=== PATIENT | female | born 1985 | race Caucasian/White ===

== ENCOUNTER 2020-08-18 15:33 | Outpatient (CLI) | payer BC, SELFPAY | END 2020-08-18 15:34 | disposition home or self-care (01) | LOC: ANHLAB 15:36 | PROVIDERS: PCP Family Medicine; Visit Provider Obstetrics & Gynecology | DX: O20.0 Threatened abortion (principal); Z3A.00 Weeks of gestation of pregnancy not specified | CPT/HCPCS: 36415; 84702 ==

== ENCOUNTER 2020-08-20 11:59 | Outpatient (CLI) | payer BC, SELFPAY | END 2020-08-20 12:00 | disposition home or self-care (01) | LOC: ANHLAB 12:01 | PROVIDERS: PCP Family Medicine; Visit Provider Obstetrics & Gynecology | DX: O20.0 Threatened abortion (principal) | CPT/HCPCS: 36415; 84702 ==

== ENCOUNTER 2021-04-07 00:01 | Inpatient (IN) | payer BC, SELFPAY ==
[2021-04-07] VITALS (233 sets, daily range): BP systolic 82–151; BP diastolic 27–98; PULSE 67–149; RESP 16–20; TEMP 36.7–37.7; O2SAT 89–100; BMI 50.1
--- OUTSIDE RECORDS SUMMARY | 2021-04-07 00:06 | XMS_ITS | Encounter Summary ---
:1985 Author Care Team Providers Name Role Phone Karma Scanlon MD Primary Care Provider [phone] Reason for Visit None recorded. Assessment and Plan 1. Chronic hypertension complica ting AND/OR reason for care during ? non-stress test Discussion Note: None recorded.Patient educational handouts: No information available. Plan of Care Reminders Provider Appointments Ob Routine Hillary Flores, 04/14/2021 CNM 9:45AM Lab None ? ? recorded. Referral None ? ? recorded. Procedures None ? ? recorded. Surgeries None ? ? recorded. Imaging Non-stress [place] Test 03/24/2021 Medications Name Start Date ? ? metoprolol succinate ER 50 mg tablet,extended release 24 hr ? TAKE 1 TABLET BY MOUTH DAILY ? Medications Administered None recorded. Vitals None recorded. Results Lab Results None recorded. Allergies Code Code System Name Reaction Severity Onset NKDA ? ? ? Problems Name Status Onset Date Source ? [facility]
--- OUTSIDE RECORDS SUMMARY | 2021-04-07 00:06 | XMS_ITS ---
:1985 Author Care Team Providers Name Role Phone COLE ARBOLEDA MD Primary Care Provider [phone] Allergies Code Code System Name Reaction Severity Status Onset NKDA ? Medications Name Status Start Date Stop Date ? ? amoxicillin 500 mg capsule Completed ? 09/09 TAKE 1 CAPSULE BY MOUTH EVERY 8 HOURS FOR 10 DAYS cephalexin 500 mg capsule Completed ? 2020 TAKE 1 CAPSULE BY MOUTH THREE TIMES DAILY FOR 7 DAYS clomiphene citrate 50 mg tablet Completed ? 09/09/2020 TAKE 3 TABLETS BY MOUTH ON DAYS 5-9 OF CYCLE COVID-19 test specimen collection Completed ? 01/26/2021 TEST DIRECTED TODAY letrozole 2.5 mg tablet Completed ? 10/08/19 21 TAKE 1 TABLET BY MOUTH DAILY ON DAYS 5 TO 9 OF CYCLE losartan Completed ? 03/25/2020 metformin 500 mg tablet Completed ? 10/08/19 21 metoprolol succinate ER 50 mg Active ? No t available tablet,extended release 24 hr nitrofurantoin monohydrate/macrocrystals 100 mg capsule Complete d ? 12/05/2020 TAKE 1 CAPSULE BY MOUTH EVERY 12 HOURS FOR 7 DAYS DIRECTED Active ? Not available progesterone micronized 200 mg capsule Completed ? 12/05/2020 TAKE 1 CAPSULE BY MOUTH EVERY DAY Problems Name Status Onset Date Source ? Active 10/07/2020 ? Maternal Obesity Complicating , Active ? ? Childbirth and the Puerperium, Antepartum Placenta Circumvallata Active ?
--- OUTSIDE RECORDS SUMMARY | 2021-04-07 00:06 | XMS_ITS | Encounter Summary ---
:1985 Author Care Team Providers Name Role Phone Karma Scanlon MD Primary Care Provider [phone] Reason for Visit None recorded. Assessment and [...] ? recorded. Imaging Non-stress [place] Test 03/31/2021 Medications Name Start Date ? ? metoprolol succinate ER 50 mg tablet,extended release 24 hr ? TAKE 1 TABLET BY MOUTH DAILY ? Medications Administered None recorded. Vitals None recorded. Results Lab Results None recorded. Allergies Code Code System Name Reaction Severity Onset NKDA ? ? ? Problems Name Status Onset Date Source ? [facility]
--- OUTSIDE RECORDS SUMMARY | 2021-04-07 00:06 | XMS_ITS | Encounter Summary ---
:1985 Author Care Team Providers Name Role Phone Karma Scanlon MD Primary Care Provider [phone] Reason for Visit OB visit OB [id number] EDC 04/21/2021 LMP 07/15/2020 Assessment and Plan Assessment Note Patient is _36__weeks . Dis cussed plan. 1. Routine care Discussion Note: None recorded.Patient educational handouts: No information available. Plan of Care Reminders Provider Appointments Ob Routine Hillary Flores, 04/14/2021 CNM 9:45AM Lab None ? ? recorded. Referral None ? ? recorded. Procedures None ? ? recorded. Surgeries None ? ? recorded. Imaging None ? ? recorded. Medications Name Start Date ? ? metoprolol succinate ER 50 mg tablet,extended release 24 hr ? TAKE 1 TABLET BY MOUTH DAILY ? Medications Administered None recorded. Vitals Height Weight BMI Blood Pressure 5 ft 5.5 in 292 lbs 47.9 kg/m2 111/67 mm[Hg] Results Lab Results None recorded. Allergies Code Code System Name Reaction Severity Onset NKDA ? ? ? Problems Name Status
--- OUTSIDE RECORDS SUMMARY | 2021-04-07 00:06 | XMS_ITS | Encounter Summary ---
:1985 Author Care Team Providers Name Role Phone Karma Scanlon MD Primary Care Provider [phone] Reason for Visit OB visit OB [id number] EDC 04/21/2021 LMP 07/15/2020 Assessment and Plan Assessment Note Patient is 37___weeks . Dis cussed plan. 1. Routine care [...] BMI Blood Pressure 5 ft 5.5 in 294 lbs 48.2 kg/m2 123/82 mm[Hg] Results Lab Results None recorded. Allergies Code Code System Name Reaction Severity Onset NKDA ? ? ? Problems Name Status
--- OUTSIDE RECORDS SUMMARY | 2021-04-07 00:06 | XMS_ITS | Encounter Summary ---
:1985 Author Care Team Providers Name Role Phone Karma Scanlon MD Primary Care Provider [phone] Reason for Visit None recorded. Assessment and Plan 1. Maternal obesity complicating , childbirth and the puerperium, antepartum ? US, obstetric, follow-up ? US, obstetric, biophysical profile + non-stress test Discussion Note: None recorded.Patient educational handouts: No information available. Plan of Care Reminders Provider Appointments Ob Routine Hillary Flores, 04/14/2021 CN 9:45AM Lab None recorded. ? ? Referral None recorded. ? ? Procedures None recorded. ? ? Surgeries None recorded. ? ? Imaging US, Obstetric, [facility] Follow-up 03/24/2021 ? US, Obstetric, [facility] Biophysical Profile + 03/24/2021 Non-stress Test Medications Name Start Date ? ? metoprolol succinate ER 50 mg tablet,extended release 24 hr ? TAKE 1 TABLET BY MOUTH DAILY ? Medications Administered None recorded. Vitals None recorded. Results Lab Results None recorded. Allergies Code Code System Name
--- OUTSIDE RECORDS SUMMARY | 2021-04-07 00:06 | XMS_ITS | Encounter Summary ---
:1985 Author Care Team Providers Name Role Phone Karma Scanlon MD Primary Care Provider [phone] Reason for Visit None recorded. Assessment and Plan 1. Maternal obesity complicating , childbirth and the puerperium, antepartum ? US, obstetric, biophysical profile + non-stress test Discussion Note: None recorded.Patient educational handouts: No information available. Plan of Care Reminders Provider Appointments Ob Routine Hillary Flores, 04/14/2021 CNM 9:45AM Lab None recorded. ? ? Referral None recorded. ? ? Procedures None recorded. ? ? Surgeries None recorded. ? ? Imaging US, Obstetric, [facility] Biophysical Profile + 03/31/2021 Non-stress Test Medications Name Start Date ? ? metoprolol succinate ER 50 mg tablet,extended release 24 hr ? TAKE 1 TABLET BY MOUTH DAILY ? Medications Administered None recorded. Vitals None recorded. Results Lab Results None recorded. Allergies Code Code System Name Reaction Severity Onset NKDA ? ? ? Problems Name Status Onset Date Source ?
--- OUTSIDE RECORDS SUMMARY | 2021-04-07 00:07 | XMS_ITS | Encounter Summary ---
:1985 Author Care Team Providers Name Role Phone Karma Scanlon MD Primary Care Provider [phone] Reason for Visit None recorded. Assessment and Plan 1. Maternal obesity complicating , childbirth and the puerperium, antepartum ? US, obstetric, follow-up Discussion Note: None recorded.Patient educational handouts: No information available. Plan of Care Reminders Provider Appointments Ob Routine Hillary Flores, 04/14/2021 CNM 9:45AM Lab None ? ? recorded. Referral None ? ? recorded. Procedures None ? ? recorded. Surgeries None ? ? recorded. Imaging , [facility]st[facility], Follow-up 01/26/2021 Medications Name Start Date ? ? metoprolol succinate ER 50 mg tablet,extended release 24 hr ? TAKE 1 TABLET BY MOUTH DAILY ? Medications Administered None recorded. Vitals None recorded. Results Lab Results None recorded. Allergies Code Code System Name Reaction Severity Onset NKDA ? ? ? Problems Name Status Onset Date Source ? [place]
--- OUTSIDE RECORDS SUMMARY | 2021-04-07 00:07 | XMS_ITS | Encounter Summary ---
:1985 Author Care Team Providers Name Role Phone Karma Scanlon MD Primary Care Provider [phone] Reason for Visit OB visit OB [id number] EDC 04/21/2021 LMP 07/15/2020 Assessment and Plan Assessment Note Patient is _32__weeks . Dis cussed plan. 1. Routine care [...] ft 5.5 in 292 lbs 47.9 kg/m2 118/75 mm[Hg] Results Lab Results None recorded. Allergies Code Code System Name Reaction Severity Onset NKDA ? ? ? Problems Name Status
--- OUTSIDE RECORDS SUMMARY | 2021-04-07 00:07 | XMS_ITS | Encounter Summary ---
:1985 Author Care Team Providers Name Role Phone Karma Scanlon MD Primary Care Provider [phone] Reason for Visit None recorded. Assessment and [...] ? recorded. Imaging Non-stress [place] Test 03/17/2021 Medications Name Start Date ? ? metoprolol succinate ER 50 mg tablet,extended release 24 hr ? TAKE 1 TABLET BY MOUTH DAILY ? Medications Administered None recorded. Vitals None recorded. Results Lab Results None recorded. Allergies Code Code System Name Reaction Severity Onset NKDA ? ? ? Problems Name Status Onset Date Source ? [facility]
--- OUTSIDE RECORDS SUMMARY | 2021-04-07 00:07 | XMS_ITS | Encounter Summary ---
:1985 Author Care Team Providers Name Role Phone Karma Scanlon MD Primary Care Provider [phone] Reason for Visit OB visit 29w5d / 3 hr GTT Assessment and Plan 1. Routine care Discussion Note: None recorded.Patient [...] BMI Blood Pressure 5 ft 5.5 in 295 lbs 48.3 kg/m2 108/70 mm[Hg] Results Lab Results None recorded. Allergies Code Code System Name Reaction Severity Onset NKDA ? ? ? Problems Name Status Onset Date Source ? Active 10/07/2020 ?
--- OUTSIDE RECORDS SUMMARY | 2021-04-07 00:07 | XMS_ITS | Encounter Summary ---
:1985 Author Care Team Providers Name Role Phone Karma Scanlon MD Primary Care Provider [phone] Reason for Visit None recorded. Assessment and [...] ? recorded. Imaging Non-stress [place] Test 03/03/2021 Medications Name Start Date ? ? metoprolol succinate ER 50 mg tablet,extended release 24 hr ? TAKE 1 TABLET BY MOUTH DAILY ? Medications Administered None recorded. Vitals None recorded. Results Lab Results None recorded. Allergies Code Code System Name Reaction Severity Onset NKDA ? ? ? Problems Name Status Onset Date Source ? [facility]i
--- OUTSIDE RECORDS SUMMARY | 2021-04-07 00:07 | XMS_ITS | Encounter Summary ---
:1985 Author Care Team Providers Name Role Phone Karma Scanlon MD Primary Care Provider [phone] Reason for Visit OB visit 27w6d Assessment and Plan 1. Routine care Discussion [...] ft 5.5 in 292 lbs 47.9 kg/m2 111/75 mm[Hg] Results Lab Results None recorded. Allergies Code Code System Name Reaction Severity Onset NKDA ? ? ? Problems Name Status Onset Date Source ? Active 10/07/2020 ? [facility]
--- OUTSIDE RECORDS SUMMARY | 2021-04-07 00:07 | XMS_ITS | Encounter Summary ---
:1985 Author Care Team Providers Name Role Phone Karma Scanlon MD Primary Care Provider [phone] Reason for Visit None recorded. Assessment and [...] ? Imaging US, Obstetric, [facility] Follow-up 02/24/2021 ? US, Obstetric, [facility] Biophysical Profile + 02/24/2021 Non-stress Test Medications Name Start Date ? ? metoprolol succinate ER 50 mg tablet,extended release 24 hr ? TAKE 1 TABLET BY MOUTH DAILY ? Medications Administered None recorded. Vitals None recorded. Results Lab Results None recorded. Allergies Code Code System Name
--- OUTSIDE RECORDS SUMMARY | 2021-04-07 00:07 | XMS_ITS | Encounter Summary ---
:1985 Author Care Team Providers Name Role Phone Karma Scanlon MD Primary Care Provider [phone] Reason for Visit None recorded. Assessment and Plan 1. Oligohydramnios ? non-stress test Discussion Note: None recorded.Patient educational handouts: No information available. Plan of Care Reminders Provider Appointments Ob Routine Hillary rios Sera Castorenae, 04/14/2021 CNM 9:45AM Lab None ? ? recorded. Referral None ? ? recorded. Procedures None ? ? recorded. Surgeries None ? ? recorded. Imaging Non-stress [place] Test 03/10/2021 Medications Name Start Date ? ? metoprolol [...]
--- OUTSIDE RECORDS SUMMARY | 2021-04-07 00:07 | XMS_ITS | Encounter Summary ---
:1985 Author Care Team Providers Name Role Phone Karma Scanlon MD Primary Care Provider [phone] Reason for Visit OB visit OB [id number] EDC 04/21/2021 LMP 07/15/2020 Assessment and Plan Assessment Note Patient is _35__weeks . Dis cussed plan. 1. Routine care [...] BMI Blood Pressure 5 ft 5.5 in 293 lbs 48 kg/m2 111/75 mm[Hg] Results Lab Results None recorded. Allergies Code Code System Name Reaction Severity Onset NKDA ? ? ? Problems Name Status
--- OUTSIDE RECORDS SUMMARY | 2021-04-07 00:07 | XMS_ITS | Encounter Summary ---
:1985 Author Care Team Providers Name Role Phone Karma Scanlon MD Primary Care Provider [phone] Reason for Visit None recorded. Assessment and Plan 1. Chronic hypertension complica ting AND/OR reason for care during ? US, obstetric, biophysical profile + non-stress test Discussion Note: None recorded.Patient educational handouts: No information available. Plan of Care Reminders Provider Appointments Ob Routine Hillary Flores, 04/14/2021 CNM 9:45AM Lab None recorded. ? ? Referral None recorded. ? ? Procedures None recorded. ? ? Surgeries None recorded. ? ? Imaging US, Obstetric, [facility] Biophysical Profile + 03/10/2021 Non-stress Test Medications Name Start Date ? ? metoprolol succinate ER 50 mg tablet,extended release 24 hr ? TAKE 1 TABLET BY MOUTH DAILY ? Medications Administered None recorded. Vitals None recorded. Results Lab Results None recorded. Allergies Code Code System Name Reaction Severity Onset NKDA ? ? ? Problems Name Status Onset Date Source ?
--- OUTSIDE RECORDS SUMMARY | 2021-04-07 00:07 | XMS_ITS | Encounter Summary ---
:1985 Author Care Team Providers Name Role Phone Karma Scanlon MD Primary Care Provider [phone] Reason for Visit None recorded. Assessment and [...] None recorded. ? ? Imaging US, Obstetric, [facility] Biophysical Profile + 03/03/2021 Non-stress Test Medications Name Start Date ? ? metoprolol succinate ER 50 mg tablet,extended release 24 hr ? TAKE 1 TABLET BY MOUTH DAILY ? Medications Administered None recorded. Vitals None recorded. Results Lab Results None recorded. Allergies Code Code System Name Reaction Severity Onset NKDA ? ? ? Problems Name Status Onset Date Source ?
--- OUTSIDE RECORDS SUMMARY | 2021-04-07 00:07 | XMS_ITS | Encounter Summary ---
:1985 Author Care Team Providers Name Role Phone Karma Scanlon MD Primary Care Provider [phone] Reason for Visit OB visit OB [id number] EDC 04/21/2021 LMP 07/15/2020 Assessment and Plan Assessment Note Patient is __33_weeks . Dis cussed plan. 1. Routine care [...] ft 5.5 in 293 lbs 48 kg/m2 119/81 mm[Hg] Results Lab Results None recorded. Allergies Code Code System Name Reaction Severity Onset NKDA ? ? ? Problems Name Status
--- OUTSIDE RECORDS SUMMARY | 2021-04-07 00:07 | XMS_ITS | Encounter Summary ---
:1985 Author Care Team Providers Name Role Phone Karma Scanlon MD Primary Care Provider [phone] Reason for Visit NST [id number] EDC 04/21/2021 Assessment and Plan 1. Oligohydramnios ? non-stress test Discussion Note: None recorded.Patient educational handouts: No information available. Plan of Care Reminders Provider Appointments Ob Routine Hillary Flores, 04/14/2021 CNM 9:45AM Lab None ? ? recorded. Referral None ? ? recorded. Procedures None ? ? recorded. Surgeries None ? ? recorded. Imaging Non-stress [place] Test 03/07/2021 Medications Name Start Date ? ? metoprolol succinate ER 50 mg tablet,extended release 24 hr ? TAKE 1 TABLET BY MOUTH DAILY ? Medications Administered None recorded. Vitals Height Weight BMI Blood Pressure 5 ft 5.5 in 293 lbs 48 kg/m2 102/65 mm[Hg] Results Lab Results None recorded. Allergies Code Code System Name Reaction Severity Onset NKDA ? ? ? Problems Name Status Onset Date Source ?
--- OUTSIDE RECORDS SUMMARY | 2021-04-07 00:07 | XMS_ITS | Encounter Summary ---
:1985 Author Care Team Providers Name Role Phone Karma Scanlon MD Primary Care Provider [phone] Reason for Visit None recorded. Assessment and [...] ? recorded. Imaging Non-stress [place] Test 02/24/2021 Medications Name Start Date ? ? metoprolol succinate ER 50 mg tablet,extended release 24 hr ? TAKE 1 TABLET BY MOUTH DAILY ? Medications Administered None recorded. Vitals None recorded. Results Lab Results None recorded. Allergies Code Code System Name Reaction Severity Onset NKDA ? ? ? Problems Name Status Onset Date Source ? Acti
--- OUTSIDE RECORDS SUMMARY | 2021-04-07 00:07 | XMS_ITS | Encounter Summary ---
:1985 Author Care Team Providers Name Role Phone Karma Scanlon MD Primary Care Provider [phone] Reason for Visit None recorded. Assessment and [...] None recorded. ? ? Imaging US, Obstetric, [facility] Biophysical Profile + 03/17/2021 Non-stress Test Medications Name Start Date ? ? metoprolol succinate ER 50 mg tablet,extended release 24 hr ? TAKE 1 TABLET BY MOUTH DAILY ? Medications Administered None recorded. Vitals None recorded. Results Lab Results None recorded. Allergies Code Code System Name Reaction Severity Onset NKDA ? ? ? Problems Name Status Onset Date Source ?
--- OUTSIDE RECORDS SUMMARY | 2021-04-07 00:07 | XMS_ITS | Encounter Summary ---
:1985 Author Care Team Providers Name Role Phone Karma Scanlon MD Primary Care Provider [phone] Reason for Visit OB visit OB [id number] EDC 04/21/2021 LMP 07/15/2020 Assessment and Plan Assessment Note Patient is _34__weeks . Dis cussed plan. 1. Routine care [...] BMI Blood Pressure 5 ft 5.5 in 290 lbs 47.5 kg/m2 129/83 mm[Hg] Results Lab Results None recorded. Allergies Code Code System Name Reaction Severity Onset NKDA ? ? ? Problems Name Status
[2021-04-07 00:35] LABS: Basophils Absolute Auto 0.1 K/mm3 (0.0-0.1); Basophils Percent Auto 0.4 % (0.2-1.2); Eosinophils Absolute Auto 0.3 K/mm3 (0-0.3); Eosinophils Percent Auto 2.4 % (0-4.4); Hematocrit 36.5 % (37.0-47.0); Hemoglobin 12.2 g/dL (12.0-15.0); Immature Granulocyte Absolute 0.22 K/mm3 (0.00-0.031); Immature Granulocyte Percent A 1.6 % (0-0.5); Lymphocytes Absolute Auto 2.24 K/mm3 (0.9-3.2); Lymphocytes Percent Auto 16.5 % (18.3-44.2); Mean Corpuscular HGB Conc 33.4 g/dl (32-36); Mean Corpuscular Hemoglobin 31.4 pg (26-34); Mean Corpuscular Volume 93.8 fl (80-100); Mean Platelet Volume 9.8 fl (7.4-10.4); Monocytes Absolute Auto 0.7 K/mm3 (0.1-0.6); Monocytes Percent Auto 5.2 % (2.6-8.5); Neutrophils Percent Auto 73.9 % (45.5-73.1); Platelet Count Result 368 k/mm3 (150-375); Red Blood Count 3.89 M/mm3 (4.2-5.4); Red Cell Distribution Width 13.3 % (11.5-14.5); White Blood Count 13.6 K/mm3 (4.5-10.0)
[2021-04-07] MEDS: LACTATED RINGERS 1,000 ML 125 ML IV CONT ×3 (00:47→10:42)
[2021-04-07] MEDS: OXYTOCIN 30 UNITS/NS 500 ML 30 UNITS/500 ML BAG IV CONT (00:47)
[2021-04-07 00:50] LABS: Alanine Aminotransferase 16 U/L (4-35); Albumin Level 3.6 g/dL (3.5-5.1); Alkaline Phosphatase 122 U/L (38-126); Anion Gap 9 mmol/L (8-16); Aspartate Amino Transferase 22 U/L (14-36); Bilirubin,Total 0.4 mg/dL (0.2-1.3); Blood Urea Nitrogen 9 mg/dL (7-17); Calcium 9.1 mg/dL (8.4-10.2); Carbon Dioxide 20 mmol/L (22-30); Chloride 105 mmol/L (98-107); Estimated Glomerular Filt Rate > 60; Glucose 106 mg/dL (65-110); Potassium 3.7 mmol/L (3.4-5.0); Sodium 134 mmol/L (137-145)
[2021-04-07 01:11] LABS: Uric Acid 5.6 mg/dL (2.5-7.5)
[2021-04-07] MEDS: PHENYLEPHRINE 1,000 MCG/10 ML SYRINGE 1000 MCG (06:50)
[2021-04-07] MEDS: LACTATED RINGERS 1,000 ML 999 ML IV CONT ×2 (07:09→08:25)
--- NOTE | 2021-04-07 07:49 | WPDOBADMIT ---
Obstetrics - Admit Note Admission Note: record reviewed. No pertinent additions to the history and/or any subsequent changes in the physical findings that are not consistent with the expected course of the were found. IOL for CHTN, SVE /-1 ARom small amount of clear odorless fluid, anticipate vaginal delivery Additions to the history and/or subsequent changes in the physical findings follow. None.
--- NOTE | 2021-04-07 15:19 | PM.OBPRVD ---
OB - Delivery Note Procedure Delivery date: 04/07/21 Procedure: vaginl delivery Events: Chronic Hypertension Induction method: AROM and Per Pitocin Protocol Delivery monitor: External FHT, External Uterine and Internal Uterine Route of delivery: Laceration Description: Perineal - 1st Degree Delivery repair: vicryl Specimen: Yes Quantitative Blood Loss (ml): 102 Anesthesia type: Epidural Disposition: floor [place] Baby Date of : 04/07/21 Time of : 15:03 Weeks of gestation at delivery: 38 gender: Male Weight (pounds): 7 Weight (ounces): 8 presentation: vertex position: Left Occiput Anterior Placenta delivery description: Spontaneous Cord Vessel Description: 3 Vessels, Nuchal Cord, Loose, Reduced, Clamped/Cut and Delayed Cord Clamping score one minute: 7 score five minutes: 9 Narrative: mother and baby skin to skin in stable condition
[2021-04-07] MEDS: OXYTOCIN 30 UNITS/NS 500 ML 30 UNITS/500 ML BAG 125 UNITS IV CONT (15:30)
[2021-04-07] MEDS: BENZOCAINE 20% AER SPR (*SP) 56 GM CAN 1 SPRAY TOPICAL (18:02)
[2021-04-07] MEDS: WITCH HAZEL 40 PADS 1 PAD TOPICAL (18:02)
[2021-04-07] MEDS: IBUPROFEN 600 MG TABLET PO (18:02)
--- NOTE | 2021-04-07 18:18 | OBPPTRN ---
Patient transferred to post room #288 via wheelchair. Support person present. Oriented to unit, room, information board, rooming in, admission packet and security measures. Patient verbalizes understanding.
[2021-04-07] MEDS: ACETAMINOPHEN 325 MG TABLET 650 MG PO (18:26)
[2021-04-07] MEDS: SODIUM CHLORIDE 0.9% IV 1,000 ML 150 ML IV CONT (22:26)
[2021-04-07] MEDS: SUMAtriptan SUCCINATE 25 MG TABLET PO (23:00)
[2021-04-08 03:00] VITALS: BP 130/87; PULSE 80; RESP 16; TEMP 36.9; O2SAT 100
[2021-04-08 05:01] LABS: Hemoglobin 10.7 g/dL (12.0-15.0)
[2021-04-08 08:00] VITALS: BP 130/77; PULSE 88; RESP 18; TEMP 36.5
[2021-04-08] MEDS: IBUPROFEN 600 MG TABLET PO ×2 (09:13→14:33)
[2021-04-08] MEDS: LANOLIN (LANSINOH) 7.5 GM CREAM 1 APPLIC TOPICAL (09:13)
[2021-04-08] MEDS: DOCUSATE SODIUM 100 MG CAPSULE PO (09:13)
[2021-04-08] MEDS: SUMAtriptan SUCCINATE 25 MG TABLET PO (09:13)
[2021-04-08 09:14] VITALS: PULSE 88
[2021-04-08] MEDS: MULTIVIT/MIN/PREN/FOL AC/IRON TABLET 1 TAB PO (09:14)
[2021-04-08] MEDS: METOPROLOL SUCCINATE EXT REL 50 MG TABCR PO (09:14)
[2021-04-08 12:30] VITALS: BP 126/80; PULSE 84; RESP 18; TEMP 36.8
--- NOTE | 2021-04-08 12:49 | P.PNOB_ITS ---
OB - PN: Subj Subjective Date/time seen: 04/08/21 12:49 Patient comments: no complaints and pain well controlled baby status: doing well Narrative: Has DE LEÓN anytime she sits up at all. Anesthesia coming to do blood patch. If DE LEÓN goes away, she would love to go home this evening. BPs normal to mildly elevated. OB - PN: Obj Data Labs CBC & Chem 7: 04/08/21 03:17 04/07/21 00:26 Labs: Laboratory Results - last 24 hr 04/08/21 03:17 Hgb 10.7 L Hct 32.0 L OB - PN A/P Assessment and Plan (1) , delivered: Code(s): O80 - Encounter for full-term uncomplicated delivery Status: Acute Plan day: 1 Plan: routine care Comments: spinal DE LEÓN- blood patch per anesthesia HOme this evening if DE LEÓN resolved. DC instructions given. BP check 1 week. Time Spent With Patient Time: Total time spent is greater than 50% in coordination of care (as docume nted) at patient's floor/unit and/or counseling patient: Time with patient: less than 15 minutes Exam Narrative: NAD abdomen soft, nontender, fundus firm below the umbilicus Extremities nontender, 1+ edema
--- NOTE | 2021-04-08 12:57 | PM.OBDSVD ---
DS: Admitting Diagnosis Discharge Date 04/08/21 Admitting Diagnosis term IUP, cHTN DS: Discharge Diagnosis Discharge Diagnosis (1) , delivered: Code(s): O80 - Encounter for full-term uncomplicated delivery Status: Acute OB - DS: Summary Hospital Course Hospital Course: Erin presented for induction of labor at term with cHTN, controlled. She had an uncomplicated vaginal delivery and course, with the exception of a spinal DE LEÓN, treated with a blood patch per anesthesia. She was discharged home on PPD1 per her preference. OB Procedures : NST and Ultrasound OB Procedures Intrapartum: Spontaneous Vag Delivery OB Procedures: : None Peripartum Data Infant Delivery Method: Natural Vaginal complications: spinal headache Status at Discharge Functional status at discharge: independent ambulation Time Spent with Patient Time attestation: Total time spent providing and/or coordinating discharge services: Exam Narrative: NAD abdomen soft, appropriately tender Ext non tender, 1+ edema DS: Data Data Completed and Pending Labs on day of discharge: Labs from last 24 hours 04/08/21 03:17 Hgb 10.7 L Hct 32.0 L Discharge Plan Discharge Attending physician on discharge: Tiffanie Turner Discharging Clinician: Tiffanie Turner Anticipated Discharge Date/Time: 04/08/21 17:00 Patient Disposition: Home, Self-Care Activity: pelvic rest Diet: regular Patient Instructions: Antibiotic Form Stand Alone Forms: General Discharge Information Follow-up/Referrals: Mara Flores CNM [Certified Nurse [employer] Machine [employer]] - 1 Week Discharge Medications: Continued PNV [id number] fumarate-FA [] 28 mg iron- 800 mcg Tablet 1 tablet PO DAILY RF: 0 metoprolol succinate 50 mg tablet extended release 24 hr 50 mg PO DAILY Qty: 90 RF: 1 Date of admission: 04/07/21 00:01 Primary Care Provider: Karma Scanlon Admitting Provider: Adelita Lee Attending physician on admission: Adelita Lee Condition: Stable
--- NOTE | 2021-04-08 13:27 | WPDANLDPN2 ---
Anes-Prog Note L&D Date/Time: 04/08/21 13:27 Comfortable throughout: labor and delivery Neuraxial method: epidural Epidural/Spinal procedure site: clean & non-tender Neuro status: Neuro function grossly intact. Pt with c/o 10 headache, worsens when standing or walking, better when lying flat, Predominantly at the base of the skull. Cardiovascular status: normal Respiratory status: normal Airway patency: baseline Mental status: baseline Post-Op hydration status: normal Vital Signs: Last Vital Signs Temp 36.5 C 04/08/21 08:00 Pulse 88 04/08/21 09:14 Resp 18 04/08/21 08:00 BP 130/77 04/08/21 08:00 Pulse Ox 100 04/08/21 03:00 Pain score (VAS): 02/20 I/O: Intake & Output 04/07/21 04/08/21 04/08/21 23:59 07:59 15:59 Intake Total 500 900 800 Output Total 458 262 5286 Balance -40 200 -200 Post-procedural complaints: other (Headache) Patient feedback: Patient satisfied with anesthetic care. Other findings: discussed conservative management vs epidural blood patch.Pt requests EBP
--- NOTE | 2021-04-08 13:57 | P.PCNANE_ITS ---
Anes - Epidural Blood Patch PN Date/Time: 04/08/21 13:57 Consent: I have discussed with the patient/family/POA, the rationale of a lumbar epidural autologous blood patch for the treatment of post-dural puncture headache (spinal headache), including associated potential risks, benefits, comp lications and side effects. I have also discussed more conservative treatment options such as intravenous hydration, caffeine and non-prescription analgesics. The patient/family/POA, understand(s) and wish(es) to proceed with epidural autologous blood patch as treatment for the patient's post-dural puncture headache. Time-Out: A pre-procedural Time-Out was completed immediately before starting the procedure and confirmed: Patient Identification, Site, Procedure, Patient Position and the Availability of Requisite Equipment. Clinical Indications: 10/10 headache, predominantly as base of skull, worse when standing and walking, better lying flat Epidural Insertion Note Patient position: sitting Skin prep: chlorhexidine Needle: 18 gauge Tuohy-Schliff, 20 ml blood drawn sterilely from left arm and injected into epidural space easily, headache resolved, Lower back tender insulation board, VSS throughout. Technique: loss of resistance Skin anesthesia: lidocaine 1% Observations: tolerated well Complications: none
[2021-04-08] MEDS: ACETAMINOPHEN 325 MG TABLET 650 MG PO (14:34)
[2021-04-08 16:00] VITALS: BP 129/89; PULSE 82; RESP 18; TEMP 36.9
--- NOTE | 2021-04-08 17:21 | PC.NURSE ---
Self care and infant care discharge instructions given including follow up visit date and time. Mother verbalized understanding. No questions or concerns voiced. Very pleasant and cooperative.
[2021-04-10 08:03] LABS: Rapid Plasma Reagin Non-Reactive (NonReactive)
[2021-04-10 08:52] VITALS: BP 133/88; PULSE 82; RESP 20; TEMP 37.1; O2SAT 99
== END 2021-04-08 18:05 | disposition home or self-care (01) | DRG 807 ==
LOC: ANHOB2 04-08 12:57 → ANHLDR 04-10 10:04 → ANHOB2 04-10 10:04
PROVIDERS: Advanced Practice Midwife; Admitting Provider Obstetrics & Gynecology; PCP Family Medicine; Visit Provider Obstetrics & Gynecology
DX: O10.92 Unspecified pre-existing hypertension complicating childbirth (principal); Z37.0 Single live birth; O70.0 First degree perineal laceration during delivery; O69.81X0 Labor and delivery complicated by cord around neck, without compression, not applicable or unspecified; O76 Abnormality in fetal heart rate and rhythm complicating labor and delivery; Z3A.38 38 weeks gestation of pregnancy; O89.4 Spinal and epidural anesthesia-induced headache during the puerperium; G97.1 Other reaction to spinal and lumbar puncture
CPT/HCPCS: 36415; 80053; 84550; 85014; 85018; 85025; 86592; 86850; 86900; 86901; 88307; A9270; J2370; J2590; J2795; J7030; J7120

== ENCOUNTER 2022-07-03 06:24 | Emergency (ER) | payer BC, SELFPAY ==
[2022-07-03] VITALS (19 sets, daily range): BP systolic 128–159; BP diastolic 83–116; PULSE 79–108; RESP 13–26; TEMP 36.6–36.8; O2SAT 98–100
--- NOTE | ~2022-07-03 | CT_ITS ---
EXAMINATION: CT abdomen pelvis w con DATE: 07/03/2022 08:32 INDICATION: Generalized abdominal pain. Low abdominal tenderness. TECHNIQUE: Computed tomography (CT) of the abdomen and pelvis was performed with 100 mL Omnipaque 350 intravenous contrast. Automated exposure control and iterative reconstruction technique were employe d. The dose-length product was 1390.44 mGy-cm. COMPARISON: CT abdomen and pelvis 05/20/2015 FINDINGS: The visualized portions of the lung bases demonstrate mild atelectasis. No pleural effusion . The heart size is normal. No pericardial effusion. The liver is normal. The gallbladder is normal i n size. The spleen, pancreas, adrenal glands, and kidneys are normal. There are no dilated loops of b owel. The appendix is normal. There is physiologic fluid in the pelvis. There are no pathologically e nlarged lymph nodes. There is mild thoracic and lumbar spondylosis. IMPRESSION: 1. No etiology for the patient's symptoms. Reviewed, dictated and finalized at location A.
--- NOTE | 2022-07-03 06:46 | ED.GENADULT ---
HPI - General Adult General Chief complaint: Abdominal Pain <Rubén Guerra MD - Last Filed: 07/03/22 06:53> Stated complaint: abdominal pain <Rubén Guerra MD - Last Filed: 07/03/22 06:53> Time Seen by Provider: 07/03/22 06:44 <Rubén Guerra MD - Last Filed: 07/03/22 06:53> History of Present Illness HPI narrative: This is a 37-year-old female presenting ED with chief complaint of lower abdominal pain. Patient states that the pain started at 3:00 a.m. right after the patient had urinated she developed a sharp crampy pain in the lower abdomen that radiates to her back. 7/10 intensity and getting worse. She says this feels like when she had a ruptured spleen in the past. It is worse with movement there are no alleviating factors. The patient denies fever, chills nausea vomiting or diarrhea. She says she feels like she has to take a bowel movement but was unable to pass feces. She also notes urinary urgency although this appears to be chronic for her. <Rubén Guerra MD - Last Filed: 07/03/22 06:53> Related Data Home medications: Home Medications Medication Instructions Recorded Confirmed vit no.95-ferrous 1 tablet PO DAILY 03/24/21 03/24/21 fumarate 28 mg-folic acid 800 mcg tablet () <Rubén Guerra MD - Last Filed: 07/03/22 06:53> Allergies/adverse reactions: Allergies Allergy/AdvReac Type Severity Reaction Status Date / Time No Known Allergies Allergy Verified 07/03/22 06:43 <Rubén Guerra MD - Last Filed: 07/03/22 06:53> [facility] Past Medical History Medical History: Medical History HLD (hyperlipidemia) Hypertension <Rubén Guerra MD - Last Filed: 07/03/22 06:53> Family History Family History: Family History Mother Depression Grandparent Family history of cardiovascular disease Family history of glaucoma Hypertension Father Hypertension Other Diabetes mellitus <Rubén Guerra MD - Last Filed: 07/03/22 06:53> Social History Social History: Social History Smoking status: Never smoker Second hand tobacco smoke exposure: No Alcohol intake: never Substance use: never Substance use type: does not use Spiritual care concerns: No Agree to blood products: Yes <Rubén Guerra MD - Last Filed: 07/03/22 06:53> Exam Narrative: APPEARANCE: No apparent distress. Head: atraumatic. EYES: EOMI, NOSE: Atraumatic NECK: Trachea midline RESPIRATORY: No increased rate of breathing , CTAB CARDIOVASCULAR: RRR, ABDOMINAL: abdomen is obese but there is tenderness to palpation near the umbilicus and lower quadrants R>L. voluntary guarding. No CVA tenderness. MUSCULOSKELETAl: No obvious deformities NEURO: Alert. Moving 4/4 extremities SKIN:: Warm, dry. Normal color PSYCHIATRIC: Normal affect <Rubén Guerra MD - Last Filed: 07/03/22 06:53> Course Course Emergency Course: 07 Charlie: Signed out to the oncoming physician pending labwork and imaging. <Rubén Guerra MD - Last Filed: 07/03/22 06:53> 0700 Charlie: Signed out to the oncoming physician pending labwork and imaging. 0715 I assumed care of this patient at shift change with pending labs and CT no interval change 0925 patient feeling comfortable informed her about her lab work, CT findings cause of her pain is unknown at this time could be colonic spasms advised her to be on a liquid diet, follow-up with her primary doctor or return to the ER if symptoms get worse. <José Miguel Arriaga MD - Last Filed: 07/03/22 09:34> Vital Signs Vital signs: Vital Signs Temperature 36.6 C 07/03/22 06:29 Pulse Rate 81 07/03/22 06:29 Respiratory Rate 14 07/03/22 06:29 Blood Pressure 156/106 H 07/03/22 06:29 Pulse Oximetry 98 07/03/22 06:29 Oxygen Delivery
[2022-07-03] MEDS: ONDANSETRON INJ 4 MG/2 ML VIAL IV PUSH (06:54)
[2022-07-03] MEDS: HYDROmorphone HCL INJ (*CRX) 1 MG/ML SYR 0.5 MG IV PUSH (06:54)
[2022-07-03] MEDS: SODIUM CHLORIDE 0.9% IV 2,000 ML 999 ML IV CONT (06:55)
[2022-07-03 07:16] LABS: Basophils Percent Auto 0.6 % (0.2-1.2); Eosinophils Absolute Auto 0.3 K/mm3 (0-0.3); Eosinophils Percent Auto 4.1 % (0-4.4); Hematocrit 42.2 % (37.0-47.0); Hemoglobin 13.8 g/dL (12.0-15.0); Immature Granulocyte Absolute 0.03 K/mm3 (0.00-0.031); Immature Granulocyte Percent A 0.5 % (0-0.5); Lymphocytes Absolute Auto 1.92 K/mm3 (0.9-3.2); Mean Corpuscular HGB Conc 32.7 g/dl (32-36); Mean Corpuscular Hemoglobin 28.9 pg (26-34); Mean Corpuscular Volume 88.3 fl (80-100); Mean Platelet Volume 9.6 fl (7.4-10.4); Monocytes Absolute Auto 0.3 K/mm3 (0.1-0.6); Monocytes Percent Auto 4.1 % (2.6-8.5); Neutrophils Absolute Auto 3.9 K/mm3 (1.3-6.7); Neutrophils Percent Auto 60.7 % (45.5-73.1); Platelet Count Result 314 k/mm3 (150-375); Red Blood Count 4.78 M/mm3 (4.2-5.4); Red Cell Distribution Width 12.5 % (11.5-14.5); White Blood Count 6.4 K/mm3 (4.5-10.0)
[2022-07-03 07:24] LABS: Lactic Acid Reflex 0.9 mmol/L (0.7-2.0)
[2022-07-03 07:26] LABS: Lipase 47 U/L (23-300); Magnesium 2.2 mg/dL (1.6-2.3)
[2022-07-03 07:39] LABS: Alanine Aminotransferase 19 U/L (6-35); Albumin Level 4.2 g/dL (3.5-5.1); Alkaline Phosphatase 64 U/L (38-126); Anion Gap 7 mmol/L (8-16); Aspartate Amino Transferase 20 U/L (14-36); Bilirubin,Total 0.6 mg/dL (0.2-1.3); Blood Urea Nitrogen 13 mg/dL (7-17); Calcium 8.6 mg/dL (8.4-10.2); Carbon Dioxide 28 mmol/L (22-30); Chloride 103 mmol/L (98-107); Estimated CRCL calculation 93 ml/min; Estimated Glomerular Filt Rate > 60; Glucose 116 mg/dL (65-110); Potassium 3.7 mmol/L (3.4-5.0); Sodium 138 mmol/L (137-145)
[2022-07-03 07:44] LABS: INR 0.8; Prothrombin Time 11.6 Seconds (11.1-14.7)
[2022-07-03 07:45] LABS: Partial Thromboplastin Time 30.7 SECONDS (22.3-36.8)
[2022-07-03 08:51] LABS: Appearance Urine Clear (Clear); Bacteria Urine 4+ /hpf; Bilirubin Urine Negative (Negative); Blood Urine 1+ (Negative); Color Urine Yellow (Yellow); Glucose Urine UA Negative (Negative); Ketones Urine Negative (Negative); Leukocyte Esterase Ur Trace LEU/UL (Negative); Nitrate Urine Positive (Negative); Non Pathogenic Casts 0-2; Protein Urine Negative (Negative); Specific Grav Ur 1.015 (1.001-1.035); Squamous Epithelial Cell Urine Occasional /hpf (Few); Urobilinogen Urine 0.2 mg/dL (<2.0); pH Urine 5.5 (5.0-9.0)
[2022-07-03 09:24] LABS: Add Urine Microscopic? YES
== END 2022-07-03 09:48 | disposition home or self-care (01) ==
PROVIDERS: Emergency Provider Emergency Medicine; PCP Family Medicine
DX: R10.33 Periumbilical pain (principal); E78.5 Hyperlipidemia, unspecified; I10 Essential (primary) hypertension
CPT/HCPCS: 36415; 74177; 80053; 81001; 81025; 83605; 83690; 83735; 85025; 85610; 85730; 87077; 87086; 87186; 96365; 96375; 99284; J0131; J1170; J2405; J7030; Q9967

== ENCOUNTER 2023-03-06 10:16 | Emergency (ER) | payer BC, SELFPAY ==
--- NOTE | ~2023-03-06 | XR_ITS ---
Portable chest x-ray Comparison: None Clinical History: Cough Findings: Questionable mild patchy groundglass opacities. No pleural effusion or pneumothorax. Card iomediastinal silhouette is unremarkable. Bones and soft tissues are unremarkable. Impression: Questionable mild patchy ground glass opacities. Correlate for atypical infection, including possibil ity Covid 19 pneumonia. Reviewed, dictated and finalized at [facility]. R AND DRAIN TECHNICIAN Impression: Questionable mild patchy ground glass opacities. Correlate for atypical infecti on, including possibility Covid 19 pneumonia.
[2023-03-06 10:20] VITALS: BP 138/93; PULSE 106; RESP 17; TEMP 36.8; O2SAT 95
--- NOTE | 2023-03-06 10:57 | ECG_ITS ---
Measurements Intervals [place] Rate: 103 P: 0 MS: 128 QRS: 46 QRSD: 86 T: 14 QT: 338 QTc: 443 Interpretive Statements SINUS TACHYCARDIA NONSPECIFIC ST & T-WAVE ABNORMALITY- DIFFUSE LEADS BASELINE ARTIFACT- I, II, III, AVR, AVL BORDERLINE ECG NO PREVIOUS ECG AVAILABLE FOR COMPARISON Electronically Signed On 03-06-2023 11:35:31 ADMINISTRATIVE SUPPORT SPECIALIST by Charles Mitchell D.O.
[2023-03-06 11:05] LABS: Influenza A QL RT-PCR Negative (Negative); Influenza B QL RT-PCR Negative (Negative); RSV RNA, RT-PCR Negative (Negative); SARS-CoV-2 RNA PCR Negative (Negative)
[2023-03-06 12:15] VITALS: BP 130/87; PULSE 97; RESP 18; TEMP 36.9; O2SAT 93
--- NOTE | 2023-03-06 12:16 | ED.URI ---
HPI - URI/Sore Throat General Chief Complaint: Upper Respiratory Infection Stated Complaint: URI Time Seen by Provider: 03/06/23 10:58 Source: patient Mode of arrival: ambulatory Limitations: no limitations History of Present Illness HPI Narrative: This is a 38-year-old female that presents to the emergency department for cold symptoms present over the last several weeks. Reports cough, congestion. Reports she has become short of breath and has chest discomfort with breathing which prompted her to be seen. Denies fevers. Related Data Home Medications Medication Instructions Recorded Confirmed vit no.95-ferrous 1 tablet PO DAILY 03/24/21 07/05/22 fumarate 28 mg-folic acid 800 mcg tablet () Allergies Allergy/AdvReac Type Severity Reaction Status Date / Time Iodinated Contrast Media Allergy Severe Rash Verified 07/05/22 10:26 Review of Systems Review of Systems: CONSTITUTIONAL: Denies fever ENT: Reports congestion, sore throat CARDIOVASCULAR: Report chest pain. Denies edema. RESPIRATORY: Reports cough and dyspnea. All systems reviewed & are unremarkable except as noted in HPI and below PMFSH Past Medical History Medical History HLD (hyperlipidemia) Hypertension Family History Family History Mother Depression Grandparent Family history of cardiovascular disease Family history of glaucoma Hypertension Father Hypertension Other Diabetes mellitus Social History Social History (Updated 07/05/22 @ 11:01 by Kriss Power CMA) Smoking status: Never smoker Second hand tobacco smoke exposure: No Alcohol intake: never Substance use: never Substance use type: does not use Lack of Transportation: No Lack of Food: Never True Current Housing: I Have Housing Concerned About Future Housing: No Difficulty Paying Gas/Electric Bills: No Difficulty Paying for Meds: No Currently Unemployed: No Education: Bachelor's Degree Difficulty w/ Childcare or Family Care: No Spiritual care concerns: No Agree to blood products: Yes Exam Narrative: GENERAL: Well-appearing, well-nourished, and in no acute distress. HEAD: Normocephalic, atraumatic. EYES: EOMI. ENT: Nares clear, no rhinorrhea or epistaxis. Mucous membranes moist. Oropharynx without tonsillar hypertrophy exudate or other lesions. Bilateral TMs pearly wilks non-bulging NECK: Supple. No adenopathy or masses. CHEST: No respiratory distress. Coarse breath sounds. No wheezes rales or rhonchi HEART: Regular rate and rhythm. No murmur heard. Normal peripheral pulses. EXTREMITIES: Normal range of motion. No edema. SKIN: Warm, dry, no rash. NEURO: No focal deficits. Alert and oriented x3. PSYCH: Normal mood and affect Course Course Emergency Course: patient updated on her workup and agrees with plan of care Vital Signs Vital signs: Vital Signs Temperature 98.2 F 03/06/23 10:20 Pulse Rate 106 H 03/06/23 10:20 Respiratory Rate 17 03/06/23 10:20 Blood Pressure 138/93 H 03/06/23 10:20 Pulse Oximetry 95 03/06/23 10:20 Temperature 98.5 F 03/06/23 12:15 Pulse Rate 101 H 03/06/23 12:20 Respiratory Rate 18 03/06/23 12:20 Blood Pressure 130/87 03/06/23 12:15 Pulse Oximetry 93 03/06/23 12:15 Oxygen Delivery Room Air 03/06/23 11:39 MDM - URI/Sore Throat MDM Narrative Medical decision making narrative: Patient presents to the ER for cold symptoms ongoing over the last couple of weeks. Endorsing fatigue and shortness of breath. Mildly tachycardic upon arrival, otherwise her vitals are normal. She is afebrile and nontoxic appearing. Oxygen saturation is normal on room air. CBC with leukocytosis to 13.5. Metabolic panel with mild hypokalemia. Patient's potassium was replaced. Magnesium is normal. EKG without acute changes and her
[2023-03-06] MEDS: ALBUTEROL SULFATE (*SP) AEROSOL 1 PUFF 2 PUFF INHALATION (12:19)
[2023-03-06 12:20] VITALS: PULSE 101; RESP 18
[2023-03-06] MEDS: predniSONE 20 MG TABLET 40 MG PO (12:28)
[2023-03-06 12:45] LABS: Basophils Absolute Auto 0.1 K/mm3 (0.0-0.1); Basophils Percent Auto 0.4 % (0.2-1.2); Eosinophils Absolute Auto 0.3 K/mm3 (0-0.3); Eosinophils Percent Auto 2.5 % (0-4.4); Hematocrit 40.7 % (37.0-47.0); Hemoglobin 12.8 g/dL (12.0-15.0); Immature Granulocyte Absolute 0.27 K/mm3 (0.00-0.031); Lymphocytes Absolute Auto 2.06 K/mm3 (0.9-3.2); Lymphocytes Percent Auto 15.3 % (18.3-44.2); Mean Corpuscular HGB Conc 31.4 g/dl (32-36); Mean Corpuscular Hemoglobin 27.8 pg (26-34); Mean Corpuscular Volume 88.5 fl (80-100); Mean Platelet Volume 9.1 fl (7.4-10.4); Monocytes Absolute Auto 0.8 K/mm3 (0.1-0.6); Monocytes Percent Auto 5.9 % (2.6-8.5); Neutrophils Percent Auto 73.9 % (45.5-73.1); Platelet Count Result 443 k/mm3 (150-375); Red Cell Distribution Width 13.3 % (11.5-14.5); White Blood Count 13.5 K/mm3 (4.5-10.0)
[2023-03-06 12:51] LABS: Alanine Aminotransferase 30 U/L (6-35); Alkaline Phosphatase 108 U/L (38-126); Anion Gap 10 mmol/L (8-16); Aspartate Amino Transferase 24 U/L (14-36); Bilirubin,Total 0.9 mg/dL (0.2-1.3); Blood Urea Nitrogen 10 mg/dL (7-17); Calcium 9.1 mg/dL (8.4-10.2); Carbon Dioxide 29 mmol/L (22-30); Chloride 99 mmol/L (98-107); Estimated CRCL calculation 116 ml/min; Estimated Glomerular Filt Rate > 60; Glucose 106 mg/dL (65-110); Potassium 3.2 mmol/L (3.4-5.0); Sodium 138 mmol/L (137-145)
[2023-03-06 12:53] LABS: Prothrombin Time 13.3 Seconds (11.1-14.7)
[2023-03-06 12:54] LABS: Partial Thromboplastin Time 31.9 SECONDS (22.3-36.8)
[2023-03-06 13:03] LABS: Troponin I < 0.012 ng/mL (0.000-0.034)
[2023-03-06 13:04] LABS: D Dimer 0.35 ug/mL (<0.48)
[2023-03-06] MEDS: POTASSIUM CHLORIDE 20 MEQ ER TABLET 40 MEQ PO (13:05)
[2023-03-06 13:15] LABS: Magnesium 1.8 mg/dL (1.6-2.3)
[2023-03-06 14:47] VITALS: PULSE 100; RESP 20; O2SAT 92
== END 2023-03-06 14:48 | disposition home or self-care (01) ==
PROVIDERS: Emergency Medicine; Emergency Provider Physician Assistant; PCP Family Medicine
DX: J40 Bronchitis, not specified as acute or chronic (principal); E87.6 Hypokalemia; R00.0 Tachycardia, unspecified; I10 Essential (primary) hypertension; E78.5 Hyperlipidemia, unspecified; Z20.822 Contact with and (suspected) exposure to COVID-19
CPT/HCPCS: 36415; 71045; 80053; 83735; 84484; 85025; 85380; 85610; 85730; 87637; 93005; 94640; 94664; 99284; A9270; J7512

== ENCOUNTER → 2023-03-18 12:12 | Outpatient (CLI) | payer BC, SELFPAY ==
--- NOTE | ~2023-03-18 | XR_ITS ---
XR chest 2V DATE: 03/18/2023 12:26 INDICATION: Acute lower respiratory infection TECHNIQUE: 2 views COMPARISON: 03/06/2023 portable AP chest FINDINGS: Heart size is within normal range. No pulmonary infiltrate or consolidation, pleural effusi on or pulmonary vascular congestion or pneumothorax is evident. No hilar or mediastinal enlargement. IMPRESSION: No active cardiopulmonary disease Reviewed, dictated and finalized at location B. ACE UTILITY OPERATOR
== END ==
PROVIDERS: PCP Physician Assistant Medical; Visit Provider Physician Assistant Medical
DX: J22 Unspecified acute lower respiratory infection (principal)
CPT/HCPCS: 71046